=== PATIENT | male | born 1975 | race Caucasian/White ===

== ENCOUNTER 2018-02-22 13:22 | Emergency (ER) | payer BC ==
[~2018-02-22] VITALS: Ht 175.3 cm; Wt 74.8 kg
[2018-02-22 13:57] VITALS: BP_SYST 140
[2018-02-22 14:41] VITALS: BP_SYST 137
== END 2018-02-22 14:48 | disposition home or self-care (01) ==
LOC: SED 13:22
DX: M54.30 Sciatica, unspecified side (principal)
CPT/HCPCS: 99283